=== PATIENT | female | born 1980 | race African-American/Black ===

== ENCOUNTER 2017-11-04 13:45 | Emergency (ER) | payer BC ==
[~2017-11-04] VITALS: Ht 175.3 cm; Wt 59.4 kg
[~2017-11-04 13:45] MED LIST: BIRTH CONTROL; IBUPROFEN 600600 M1 PO
[2017-11-04 15:01] LABS: URINE BILIRUBIN NEGATIVE (Negative); URINE BLOOD TRACE (Negative); URINE CLARITY CLEAR; URINE COLOR YELLOW; URINE GLUCOSE-RANDOM* NEGATIVE (Negative); URINE KETONES NEGATIVE (Negative); URINE LEUKOCYTES NEGATIVE (Negative); URINE NITRITE NEGATIVE (Negative); URINE PROTEIN (DIPSTICK) NEGATIVE (Negative); URINE SPECIFIC GRAVITY 1.025 (1.005-1.035); URINE UROBILINOGEN 0.2 E.U./dl (0.2-1.0)
[2017-11-04] MEDS ORDERED: OXYCODONE HCL 55 MG PO (16:05)
[2017-11-04] MEDS ORDERED: FLEXERIL PO (16:05)
== END 2017-11-04 16:14 | disposition home or self-care (01) ==
LOC: ER 13:45
PROVIDERS: Physician Assistant
DX: M54.9 Dorsalgia, unspecified (principal); D25.9 Leiomyoma of uterus, unspecified; R91.1 Solitary pulmonary nodule; F17.210 Nicotine dependence, cigarettes, uncomplicated; Z98.890 Other specified postprocedural states